=== PATIENT | male | born 1945 | race Caucasian/White ===

== ENCOUNTER 2020-04-08 13:53 | Inpatient (IN) | payer MEDICARE ==
[~2020-04-08] VITALS: Ht 172.7 cm; Wt 116.7 kg
[~2020-04-08 13:53] MED LIST: ACYCLOVIR800 MG PO; ASPIRIN81 MG PO; COQ10100 MG PO; FENOFIBRATE54 MG PO; FISH OIL1000 MG PO; FLUZONE SPLT1 M1 IM; GABAPENTIN400 MG PO; HYDROCO/APAP1 T10 PO; HYZAAR1 TA2 PO; LIDODERM5 % EX; MELOXICAM15 MG PO; OS-CAL 500500 M1 OR; PHENERGAN12.5 MG/TA PO; ULTRAM50 M1 PO
--- NOTE | 2020-04-08 14:05 | NUR ---
ASSISTED PT OUT OF PRIVATE AUTO, PT TACHYNEIC, PALE, WITH CYANOTIC NAILBEDS, PT IMMEDIATELY BROUGHT BACK TO ROOM 8, PLACED ON PEA VINER MECHANIC, SHOWS SINUS TACH, RESP 44, 02 84% RA. DR CHILDS, RT AT BEDSIDE.
--- NOTE | 2020-04-08 14:10 | NUR ---
PT ANXIOUS, RESP LABORED AT A RATE 36-44, ABG OBTAINED, NEB TX GIVEN. PT PLACED ON 02 AT 6L VIA NC. DR CHILDS REMAINS AT BEDSIDE. MONITOR SHOWS SINUS TACH. SKIN WARM AND DRY AT THIS TIME.
[2020-04-08 14:30] LABS: HEMATOCRIT 46.8 % (39.0-50.0); HEMOGLOBIN 14.9 g/dl (14.0-18.0); IMMATURE GRANULOCYTES 0.5 % (0.0-5.0); MEAN CELL VOLUME 91.9 fL CALC (80.0-100.0); MEAN CORPUSCULAR HGB 29.3 pG CALC (26.0-32.0); MEAN CORPUSCULAR HGB CONC 31.8 g/dL CAL (32.0-36.0); NEUT# 20.69 thou/uL (1.82-7.42); RED BLOOD COUNT 5.09 mill/uL (4.70-6.10); RED CELL DISTRI WIDTH 15.4 % (11.5-15.5)
[2020-04-08 14:46] LABS: CREATININE 1.5 mg/dL (0.7-1.3); POTASSIUM 4.6 mmol/l (3.5-5.1)
--- NOTE | 2020-04-08 15:00 | NUR ---
PT REPOSITIONED IN BED FOR COMFORT, SKIN P/W/D. PT STATES " BREATHING BETTER" VITAL SIGNS STABLE AT THIS TIME.
[2020-04-08 15:22] LABS: ALBUMIN 4.3 g/dL (3.2-5.0); BILIRUBIN, TOTAL 1.8 mg/dL (0.0-1.4); TOTAL PROTEIN 7.6 g/dL (6.3-8.2)
--- NOTE | 2020-04-08 16:00 | NUR ---
SPOUSE AT BEDSIDE WITH PT. THEY REPORTS SIMILIAR EPISODES 2 WEEKS AGO. PT SEEN AT DR NORRIS'S OFFICE TODAY AND WAS SWABBED FOR COVID.
[2020-04-08 16:16] LABS: URINE BILIRUBIN - DIPSTICK NEGATIVE (NEGATIVE); URINE BLOOD DIPSTICK TRACE-INTACT (NEGATIVE); URINE COLOR YELLOW; URINE GLUCOSE - DIPSTICK NEGATIVE (NEGATIVE); URINE KETONE TRACE mg/dL (NEGATIVE); URINE LEUK ESTERASE NEGATIVE (NEGATIVE); URINE NITRITE - DIPSTICK NEGATIVE (Negative); URINE PH 5.5 (4.5-8.0); URINE PROTEIN - DIPSTICK >=300 mg/dL (NEG-TRACE); URINE SPECIFIC GRAVITY 1.025; URINE UROBILINOGEN - DIPSTICK 0.2 E.U./dL (0.2)
[2020-04-08 16:33] LABS: URINE SQUAMOUS EPITHELIAL CELL FEW EPI/hpf (0-FEW)
--- NOTE | 2020-04-08 17:00 | NUR ---
PT TALKING WITH SPOUSE, REPORTS FEELING BETTER, VSS. WILL CONTINUE TO MONITOR
--- NOTE | 2020-04-08 18:01 | NUR ---
DR CHILDS AT BEDSIDE TO DISCUSS CLINICAL FINDINGS AND PLANS FOR ADMISSION. PT VERBALIZED UNDERSTANDING.
--- NOTE | 2020-04-08 18:16 | NUR ---
REPORT TO ANGÉLICA BRYANT
--- NOTE | 2020-04-08 18:55 | NUR ---
REPORT TO ELAINE BRYANT.
--- NOTE | 2020-04-08 20:00 | NUR ---
TRANSPORTED PT TO ICU 2 WITH BRIM STITCHER, 02 VIA NC AND IV SITE INTACT. PT DID NOT HAVE ANY SOB WHILE TRANSPORTING OR WALKING FROM STRETCHER TO BED. PT AND WERE BOTH SUPRISED TO FIND OUT PT GOING TO ICU. INFORMED THEM SO WE CAN KEEP A CLOSER EYE ON HIM. BOTH ACCEPTED REASON.
[2020-04-08 20:05] VITALS: BP 116/70
--- NOTE | 2020-04-08 20:05 | NUR ---
REPORT GIVEN BY JOSH IN THE ER. PATIENT BROUGHT TO THE UNIT BY JOSÉ ANTONIO BRYANT VIA [facility]. ARRIVED AT 2004. ALERT AND ORIENT. RESP EVEN AND UNLAOBRED, 4L VIA NC, LUNGS CLEAR. BOWEL SOUNDS ACTIVE. PULSES STRONG. TRACE EDEMA PRESENT BILATERAL FEET, PATIENT STATES THAT IS NORMAL. ORIENTED TO ROOM, CALL LIGHT, AND BED. PLAN OF CARE DISCUSSED. PATIENT INFORMED TO CALL WITH ANY QUESTIONS OR CONCERNS.
--- NOTE | 2020-04-08 21:07 | NUR ---
CALLED, CODE WAS VERIFIED. PATIENT'S WAS UPDATED ON HIS CURRENT CONDITION.
--- NOTE | 2020-04-08 23:30 | NUR ---
PATIENT IN BED RESTING WITH EYES CLOSED. RESP EVEN AND UNLABORED. NO S/S OF DISTRESS NOTED.
[2020-04-09] VITALS (12 sets, daily range): BP systolic 117–169; BP diastolic 57–84
--- NOTE | 2020-04-09 01:05 | NUR ---
INFORMED OF INCREASED TROP. PATIENT HAS NO C/O SOB OR CP. SR ON TELE. NO NEW ORDERS GIVEN AT THIS TIME.
--- NOTE | 2020-04-09 04:43 | NUR ---
NEW BAG OF NS STARTED. PATIENT INFORMED FOR ELEVATED TROP. RESP EVEN AND UNLABORED. NO S/S OF DISTRESS NOTED.
[2020-04-09 06:40] LABS: BUN 33 mg/dL (8-23); BUN/CREATININE RATIO 28 (12-20 (CALC)); CHLORIDE 106 mmol/l (95-108); CREATININE 1.2 mg/dL (0.7-1.3); GFR 59 ML/MIN (>=60 (CALC)); GFR FOR AFR.AMER. > 60 ML/MIN (>=60 (CALC)); POTASSIUM 4.7 mmol/l (3.5-5.1); SODIUM 135 mmol/l (137-146)
[2020-04-09 06:44] LABS: ANION GAP 11 (6-22 (CALC)); CARBON DIOXIDE 23 mmol/l (22-30)
--- NOTE | 2020-04-09 07:20 | NUR ---
pt awake in bed; no apparent distress noted; pt offers no complaints; assessment completed at this time; pt alert and oriented; denies pain; no n/v noted; pt denies sob/ chest pain; resp even and unlabored; lungs clear; skin color wnl; o2 per nc at 2L; radiation monitor dry cough noted; hr reg; strong; pulses; trace pedal edema; sr on monitor; abd soft with bs present; no bm noted per music writer; pt voiding clear yellow urine; urinal at bedside; #20 flushed and patent to rac/ #20 patent to lac with ivf infusing without complication; no redness or edema noted at site; plan of care/ am meds explained; call light within reach; will continue to monitor
--- NOTE | 2020-04-09 08:00 | NUR ---
spouse Vishal Cortez called this automobile and property underwriter; update provided; med list faxed to pharmacy; will continue to monitor
[2020-04-09] MEDS ORDERED: METAMUCIL0.36 GM PO (08:09)
[2020-04-09] MEDS ORDERED: OMEGA 31000 MG PO (08:09)
[2020-04-09] MEDS ORDERED: D32000 UNIT PO (08:09)
[2020-04-09] MEDS ORDERED: ALLOPURINOL100 MG PO (08:09)
[2020-04-09] MEDS ORDERED: BENICAR HCT1 TA1 PO (08:10)
[2020-04-09] MEDS ORDERED: ROSUVASTATIN CA10 MG PO (08:10)
[2020-04-09] MEDS ORDERED: SILDENAFIL50 MG PO (08:10)
--- NOTE | 2020-04-09 09:09 | NUR ---
pt awake in bed; am meds explained; pt denies taking losarten; states he in on a new medication (Olmesartan); losarten held at this time and to be clarified with MD; will continue to monitor
--- NOTE | 2020-04-09 09:28 | NUR ---
Dr Machuca present at bedside to assess pt and discuss plan of care
[2020-04-09 09:47] LABS: HEMATOCRIT 39.7 % (39.0-50.0); HEMOGLOBIN 12.9 g/dl (14.0-18.0); IMMATURE GRANULOCYTES 0.4 % (0.0-5.0); MEAN CELL VOLUME 91.7 fL CALC (80.0-100.0); MEAN CORPUSCULAR HGB 29.8 pG CALC (26.0-32.0); MEAN CORPUSCULAR HGB CONC 32.5 g/dL CAL (32.0-36.0); NEUT# 13.68 thou/uL (1.82-7.42); RED BLOOD COUNT 4.33 mill/uL (4.70-6.10); RED CELL DISTRI WIDTH 15.8 % (11.5-15.5)
--- NOTE | 2020-04-09 10:01 | NUR ---
plan of care/ meds discussed with Dr Machuca; pt informed of plan of care; christian administered; sr on monitor; iv intact and patent; pt offers no complaints; call light within reach; will continue to monitor
--- NOTE | 2020-04-09 12:01 | NUR ---
awake sitting on side of bed eating lunch; no apparent distress noted; resp even and unlabored; ra; o2 sat 97%; iv intact and patent; no redness or edema noted at site; sr on monitor; call light within reach; will continue to monitor
--- NOTE | 2020-04-09 14:15 | NUR ---
pt awake in bed; no apparent distress noted; sr on monitor; iv intact and patent; call light within reach; will continue to monitor
--- NOTE | 2020-04-09 16:07 | NUR ---
awake in bed; no apparent distress noted; pt offers no complaints; iv intact and patent; sr on monitor; deny needs; call light within reach; will continue to monitor
--- NOTE | 2020-04-09 17:50 | NUR ---
resting in bed with eyes closed; no apparent distress noted; easily aroused; offers no complaints; sr on monitor; iv intact and patent; call light within reach
--- NOTE | 2020-04-09 19:45 | NUR ---
PATIENT SITTING UP IN BED IN HIGH FOWLERS POSITION. RESP NON-LABORED. LUNGS CLEAR. RA O2 SAT 98% BREATH SOUNDS CLEAR THROUGHOUT LUNG LEYVA. SALINE LOCK IN RAC AND IV IN LAC WITH NS AT 125 ML/HR, BOTH SITES BENIGN. DISCUSSSED PLAN OF CARE. DENIES NEEDS AT THIS TIME. CALL STANTON IN REACH.
--- NOTE | 2020-04-09 22:00 | NUR ---
RESTING IN BED WATCHING TV. PLEASANT AND COOPERATIVE. TAKING PO FLUIDS WELL.
[2020-04-10] VITALS (7 sets, daily range): BP systolic 125–197; BP diastolic 58–97
--- NOTE | 2020-04-10 | NUR ---
RESTING WITH EYES CLOSED. RESP NON-LABORED. RA O2 SAT 94% SR ON MONITOR. IV INFUSING WITHOUT INCIDENT.
--- NOTE | 2020-04-10 02:00 | NUR ---
SLEEPING SOUNDLY. RESP NON-LABORED. SR ON MONITOR. VSS.
--- NOTE | 2020-04-10 04:10 | NUR ---
HAS SLEPT SOUNDLY. VSS. SR ON MONITOR. NO CHANGES TO REPORT.
[2020-04-10 05:14] LABS: HEMOGLOBIN 12.7 g/dl (14.0-18.0); IMMATURE GRANULOCYTES 0.6 % (0.0-5.0); MEAN CELL VOLUME 92.6 fL CALC (80.0-100.0); MEAN CORPUSCULAR HGB 29.4 pG CALC (26.0-32.0); MEAN CORPUSCULAR HGB CONC 31.8 g/dL CAL (32.0-36.0); NEUT# 10.83 thou/uL (1.82-7.42); RED BLOOD COUNT 4.32 mill/uL (4.70-6.10)
[2020-04-10 05:50] LABS: ANION GAP 9 (6-22 (CALC)); BUN 32 mg/dL (8-23); BUN/CREATININE RATIO 31 (12-20 (CALC)); CARBON DIOXIDE 21 mmol/l (22-30); CHLORIDE 109 mmol/l (95-108); GFR > 60 ML/MIN (>=60 (CALC)); GFR FOR AFR.AMER. > 60 ML/MIN (>=60 (CALC)); SODIUM 134 mmol/l (137-146)
[2020-04-10 05:51] LABS: POTASSIUM 5.4 mmol/l (3.5-5.1)
--- NOTE | 2020-04-10 06:11 | NUR ---
NO CHANGES TO REPORT. VSS.
--- NOTE | 2020-04-10 07:35 | NUR ---
pt resting in bed with eyes closed; no apparent distress noted; easily arousable; assessment completed at this time; pt alert and oriented; denies pain; no n/v noted; resp even and unlabored; lungs clear; skin color wnl; ra; hr reg; strong pulses; pedal edema noted; sr on monitor; abd soft/ distended with bs present; no bm noted per greeting card writer; pt admits to voiding without complication; no urine to inspect at this time; urinal present at bedside; #20 to rac saline locked; #20 to lac with ivf infusing; both sites flushed and patent; no redness or edema noted; plan of care/ am meds explained; call light within reach; will continue to monitor
--- NOTE | 2020-04-10 08:03 | NUR ---
awake sitting on side of bed eating breakfast; no apparent distress noted; sr on monitor; call light within reach; will continue to monitor
--- NOTE | 2020-04-10 09:36 | NUR ---
awake in bed; am meds explained; bp elevated; home meds reviewed with pt; sr on monitor; call light within reach
[2020-04-10] MEDS ORDERED: LEVAQUIN750 MG PO (09:54)
--- NOTE | 2020-04-10 10:00 | NUR ---
Dr Machuca present at bedside to assess pt and discuss plan of care/ discharge; iv intact; pt offers no complaints; call light within reach; will continue to monitor
--- NOTE | 2020-04-10 11:58 | NUR ---
awake sitting on side of bed eating lunch; no apparent distress noted; pt offers no complaints; iv's intact and saline locked; sr on monitor; pt deny needs; call light within reach; will continue to monitor
--- NOTE | 2020-04-10 13:35 | NUR ---
Dr Machuca notified of elevated bp of 177/97; orders reeived and on chart; continue with discharge
--- NOTE | 2020-04-10 14:05 | NUR ---
awake in bed; offers no complaints; bp remains elevated; pt insistant on discharge; abt infusing without complication; sr/pac on monitor; call light within reach; will continue to monitor
--- NOTE | 2020-04-10 15:00 | NUR ---
discharge instructions reviewed with pt; pt admits to understanding; pt has been informed to take bp meds when he arrives home as per Dr Machuca; awaiting completion of abt; will continue to monitor
--- NOTE | 2020-04-10 15:34 | NUR ---
Discharge instructions given. Patient verbalizes understanding of same. Discharged in stable condition via Wheelchair to Home with spouse. All belongings sent with pt.
--- NOTE | 2020-04-11 21:01 | NUR ---
Notified patient of negative Covid results from 04/08/20.
== END 2020-04-10 15:34 | disposition home or self-care (01) | DRG 194 ==
LOC: ED 13:53 → ED-I 17:16 → ED 17:30 → ED-I 17:31 → MS2 18:03 → ICU 18:58
PROVIDERS: Emergency Medicine; ADMIT Internal Medicine; ATTEND Internal Medicine
DX: J18.9 Pneumonia, unspecified organism (principal); N17.9 Acute kidney failure, unspecified; I24.8 Other forms of acute ischemic heart disease; I10 Essential (primary) hypertension; E78.5 Hyperlipidemia, unspecified; Z20.828 Contact with and (suspected) exposure to other viral communicable diseases

== ENCOUNTER 2020-08-29 09:17 | Emergency (ER) | payer MEDICARE ==
[~2020-08-29] VITALS: Ht 172.7 cm; Wt 110.9 kg
[~2020-08-29 09:17] MED LIST changes: +ALLOPURINOL100 MG PO; +BENICAR HCT1 TA1 PO; +D32000 UNIT PO; +LEVAQUIN750 MG PO; +METAMUCIL0.36 GM PO; +OMEGA 31000 MG PO; +ROSUVASTATIN CA10 MG PO; +SILDENAFIL50 MG PO
[2020-08-29 09:43] LABS: HEMATOCRIT 42.8 % (39.0-50.0); HEMOGLOBIN 13.3 g/dl (14.0-18.0); IMMATURE GRANULOCYTES 0.3 % (0.0-5.0); MEAN CORPUSCULAR HGB 27.4 pG CALC (26.0-32.0); MEAN CORPUSCULAR HGB CONC 31.1 g/dL CAL (32.0-36.0); NEUT# 8.19 thou/uL (1.82-7.42); RED BLOOD COUNT 4.86 mill/uL (4.70-6.10); RED CELL DISTRI WIDTH 14.7 % (11.5-15.5)
[2020-08-29 10:00] LABS: ALBUMIN 3.6 g/dL (3.2-5.0); CREATININE 1.4 mg/dL (0.7-1.3); POTASSIUM 4.1 mmol/l (3.5-5.1); TOTAL PROTEIN 6.8 g/dL (6.3-8.2)
[2020-08-29 10:03] LABS: BILIRUBIN, TOTAL 0.4 mg/dL (0.0-1.4)
[2020-08-29 10:13] LABS: MEAN CELL VOLUME 88.1 fL CALC (80.0-100.0)
[2020-08-29] MEDS ORDERED: MUCINEX1200 MG PO (11:00)
[2020-08-29] MEDS ORDERED: ONDANSETRON4 MG PO (11:01)
[2020-08-29] MEDS ORDERED: OMEPRAZOLE20 MG PO (11:02)
[2020-08-29] MEDS ORDERED: NORVASC5 M1 PO (11:04)
[2020-08-29] MEDS ORDERED: AMLOD/BENAZP1 CA3 PO (11:05)
[2020-08-29] MEDS ORDERED: CARVEDILOL12.5 MG PO (11:05)
[2020-08-29] MEDS ORDERED: LASIX 40 MG TAB40 MG PO (11:23)
[2020-08-29 11:41] VITALS: BP 132/72
== END 2020-08-29 11:41 | disposition home or self-care (01) ==
LOC: ED 09:17
PROVIDERS: Family Medicine
DX: I11.0 Hypertensive heart disease with heart failure (principal); I50.9 Heart failure, unspecified; S22.42XA Multiple fractures of ribs, left side, initial encounter for closed fracture; M54.2 Cervicalgia; W19.XXXA Unspecified fall, initial encounter; Z95.1 Presence of aortocoronary bypass graft; Z20.828 Contact with and (suspected) exposure to other viral communicable diseases
CPT/HCPCS: Q9967

== ENCOUNTER 2020-10-18 15:24 | Emergency (ER) | payer MEDICARE ==
[~2020-10-18] VITALS: Ht 172.7 cm; Wt 110.0 kg
[~2020-10-18 15:24] MED LIST changes: +AMLOD/BENAZP1 CA3 PO; +CARVEDILOL12.5 MG PO; +LASIX 40 MG TAB40 MG PO; +MUCINEX1200 MG PO; +NORVASC5 M1 PO; +OMEPRAZOLE20 MG PO; +ONDANSETRON4 MG PO
[2020-10-18 16:46] LABS: HEMATOCRIT 42.7 % (39.0-50.0); HEMOGLOBIN 13.4 g/dl (14.0-18.0); IMMATURE GRANULOCYTES 0.6 % (0.0-5.0); MEAN CELL VOLUME 84.9 fL CALC (80.0-100.0); MEAN CORPUSCULAR HGB 26.6 pG CALC (26.0-32.0); MEAN CORPUSCULAR HGB CONC 31.4 g/dL CAL (32.0-36.0); NEUT# 3.8 thou/uL (1.82-7.42); RED BLOOD COUNT 5.03 mill/uL (4.70-6.10)
[2020-10-18 17:02] LABS: ALBUMIN 3.4 g/dL (3.2-5.0); BILIRUBIN, TOTAL 0.6 mg/dL (0.0-1.4); CREATININE 1.7 mg/dL (0.7-1.3); POTASSIUM 4.9 mmol/l (3.5-5.1); TOTAL PROTEIN 6.6 g/dL (6.3-8.2)
[2020-10-18 17:47] VITALS: BP 133/63
[2020-10-18] MEDS ORDERED: CHERATUSSIN PO (18:01)
== END 2020-10-18 18:02 | disposition home or self-care (01) ==
LOC: ED 15:24
PROVIDERS: Family Medicine
DX: R55 Syncope and collapse (principal); I10 Essential (primary) hypertension; M10.9 Gout, unspecified

== ENCOUNTER 2021-04-14 21:49 | Emergency (ER) | payer MEDICARE ==
[~2021-04-14] VITALS: Ht 172.7 cm; Wt 106.0 kg
[~2021-04-14 21:49] MED LIST changes: +CHERATUSSIN PO
[2021-04-14] MEDS ORDERED: XARELTO15 MG PO (22:39)
[2021-04-14 22:59] VITALS: BP 133/72
== END 2021-04-14 22:57 | disposition home or self-care (01) ==
LOC: ED 21:49
DX: L76.22 Postprocedural hemorrhage of skin and subcutaneous tissue following other procedure (principal); I10 Essential (primary) hypertension; E78.00 Pure hypercholesterolemia, unspecified; M10.9 Gout, unspecified; Y83.1 Surgical operation with implant of artificial internal device as the cause of abnormal reaction of the patient, or of later complication, without mention of misadventure at the time of the procedure

== ENCOUNTER 2021-08-12 21:06 | Emergency (ER) | payer MEDICARE ==
[~2021-08-12] VITALS: Ht 172.7 cm; Wt 100.0 kg
[~2021-08-12 21:06] MED LIST changes: +XARELTO15 MG PO
[2021-08-12 22:57] LABS: HEMATOCRIT 43.4 % (39.0-50.0); HEMOGLOBIN 13.7 g/dl (14.0-18.0); IMMATURE GRANULOCYTES 0.1 % (0.0-5.0); MEAN CORPUSCULAR HGB 27.8 pG CALC (26.0-32.0); MEAN CORPUSCULAR HGB CONC 31.6 g/dL CAL (32.0-36.0); NEUT# 8.48 thou/uL (1.82-7.42); RED BLOOD COUNT 4.93 mill/uL (4.70-6.10); RED CELL DISTRI WIDTH 16.7 % (11.5-15.5)
[2021-08-12 23:08] LABS: ALBUMIN 3.6 g/dL (3.2-5.0); ANION GAP 11 (6-22 (CALC)); BUN 23 mg/dL (8-23); BUN/CREATININE RATIO 18 (12-20 (CALC)); CARBON DIOXIDE 25 mmol/l (22-30); CHLORIDE 106 mmol/l (95-108); CREATININE 1.3 mg/dL (0.7-1.3); GFR 54 ML/MIN (>=60 (CALC)); GFR FOR AFR.AMER. > 60 ML/MIN (>=60 (CALC)); SGOT/AST 23 u/l (19-48); SODIUM 139 mmol/l (137-146); TOTAL PROTEIN 6.6 g/dL (6.3-8.2)
[2021-08-12 23:09] LABS: ALKALINE PHOSPHATASE 149 u/l (38-126); BILIRUBIN, TOTAL 1.1 mg/dL (0.0-1.4)
[2021-08-12 23:19] LABS: D-DIMER 1.5 mg/L (0.19-0.60); MYOGLOBIN 53 ng/mL (0 - 121)
[2021-08-12 23:22] LABS: INTERNATIONAL NORMALIZED RATIO 1.1 RATIO (0.7-1.3); PROTHROMBIN TIME 11.9 SECONDS (9.0-12.5)
[2021-08-13] MEDS ORDERED: LEVAQUIN750 M1 PO (01:05)
[2021-08-13 01:23] VITALS: BP 135/68
[2021-08-13 03:15] LABS: URINE BILIRUBIN - DIPSTICK NEGATIVE (NEGATIVE); URINE BLOOD DIPSTICK TRACE-INTACT (NEGATIVE); URINE COLOR YELLOW; URINE GLUCOSE - DIPSTICK NEGATIVE (NEGATIVE); URINE KETONE NEGATIVE (NEGATIVE); URINE LEUK ESTERASE NEGATIVE (NEGATIVE); URINE PROTEIN - DIPSTICK 100 mg/dL (NEG-TRACE); URINE UROBILINOGEN - DIPSTICK 0.2 E.U./dL (0.2)
[2021-08-13 03:18] LABS: URINE NITRITE - DIPSTICK NEGATIVE (Negative)
[2021-08-13 03:35] LABS: URINE RBC 0-2 RBC/hpf (0-5); URINE SQUAMOUS EPITHELIAL CELL FEW EPI/hpf (0-FEW)
== END 2021-08-13 01:30 | disposition home or self-care (01) ==
LOC: ED 21:06
PROVIDERS: Family Medicine
DX: J18.9 Pneumonia, unspecified organism (principal); I10 Essential (primary) hypertension; E78.00 Pure hypercholesterolemia, unspecified; M10.9 Gout, unspecified; Z95.0 Presence of cardiac pacemaker; Z20.822 Contact with and (suspected) exposure to COVID-19
CPT/HCPCS: Q9967

== ENCOUNTER 2023-11-18 15:54 | Inpatient (IN) | payer MEDICARE ==
[~2023-11-18] VITALS: Ht 172.7 cm; Wt 107.0 kg
[~2023-11-18 15:54] MED LIST changes: +LEVAQUIN750 M1 PO
[2023-11-18 17:08] VITALS: BP 146/85
[2023-11-18] MEDS ORDERED: COZAAR25 MG PO (17:10)
[2023-11-18] MEDS ORDERED: ALLOPURINOL200 MG (17:11)
[2023-11-18] MEDS ORDERED: FUROSEMIDE20 MG PO (17:11)
[2023-11-18 17:12] LABS: BASO% 0.2 % (0-3); EOS% 0.6 % (0-8); HEMATOCRIT 47.8 % (39.0-50.0); HEMOGLOBIN 15.7 g/dl (14.0-18.0); IMMATURE GRANULOCYTES 0.2 % (0.0-5.0); LYMPH% 4.8 % (15-41); MEAN CORPUSCULAR HGB 31.8 pG CALC (26.0-32.0); MEAN CORPUSCULAR HGB CONC 32.8 g/dL CAL (32.0-36.0); NEUT# 7.6 thou/uL (1.82-7.42); NEUT% 81.2 % (42-76); RED BLOOD COUNT 4.93 mill/uL (4.70-6.10); RED CELL DISTRI WIDTH 15.9 % (11.5-15.5)
[2023-11-18] MEDS ORDERED: POT CHLORIDE10 ME5 PO (17:13)
[2023-11-18] MEDS ORDERED: ALPRAZOLAM0.5 M2 PO (17:14)
[2023-11-18 17:23] LABS: CREATININE 1.5 mg/dL (0.7-1.3); POTASSIUM 4.4 mmol/l (3.5-5.1)
[2023-11-18 17:55] VITALS: BP 121/83
[2023-11-18 18:41] LABS: URINE BLOOD DIPSTICK Trace-intact (NEGATIVE); URINE GLUCOSE - DIPSTICK Negative (NEGATIVE); URINE KETONE Negative (NEGATIVE); URINE LEUK ESTERASE Negative (NEGATIVE); URINE NITRITE - DIPSTICK Negative (Negative); URINE PH 5.5 (4.5-8.0); URINE PROTEIN - DIPSTICK >=300 mg/dL (NEG-TRACE)
[2023-11-18 18:48] LABS: URINE COLOR Yellow; URINE RBC 0-2 RBC/hpf (0-5); URINE WBC 0-2 WBC/hpf (0-5)
[2023-11-18 19:41] VITALS: BP 119/46
[2023-11-18 20:26] VITALS: BP 121/71
[2023-11-18 23:25] VITALS: BP 90/47
[2023-11-19] VITALS (192 sets, daily range): BP systolic 63–168; BP diastolic 37–107
[2023-11-19 07:00] LABS: ALBUMIN 3.5 g/dL (3.2-5.0); CREATININE 1.7 mg/dL (0.7-1.3); TOTAL PROTEIN 6.2 g/dL (6.3-8.2)
[2023-11-19 07:28] LABS: BILIRUBIN, TOTAL 1.9 mg/dL (0.2-1.3); POTASSIUM 5.4 mmol/l (3.5-5.1)
[2023-11-19 09:17] LABS: ALBUMIN 3.4 g/dL (3.2-5.0); BILIRUBIN, TOTAL 1.8 mg/dL (0.2-1.3); CREATININE 1.9 mg/dL (0.7-1.3); TOTAL PROTEIN 5.9 g/dL (6.3-8.2)
[2023-11-19 09:18] LABS: POTASSIUM 5.6 mmol/l (3.5-5.1)
[2023-11-19 15:21] LABS: CREATININE 1.8 mg/dL (0.7-1.3)
[2023-11-19 15:22] LABS: POTASSIUM 4.3 mmol/l (3.5-5.1)
== END 2023-11-19 18:40 | DRG 871 ==
LOC: MS2 15:54 → ICU 11-19 02:25
PROVIDERS: Internal Medicine; ADMIT Student in an Organized Health Care Education/Training Program; ATTEND Student in an Organized Health Care Education/Training Program
PROC: 5A09357 Assistance with Respiratory Ventilation, Less than 24 Consecutive Hours, Continuous Positive Airway Pressure (ICD-10-PCS; principal; 2023-11-19)
PROC: 06HY33Z Insertion of Infusion Device into Lower Vein, Percutaneous Approach (ICD-10-PCS; 2023-11-19)
PROC: 0BH17EZ Insertion of Endotracheal Airway into Trachea, Via Natural or Artificial Opening (ICD-10-PCS; 2023-11-19)
PROC: 5A1935Z Respiratory Ventilation, Less than 24 Consecutive Hours (ICD-10-PCS; 2023-11-19)
PROC: 3E043XZ Introduction of Vasopressor into Central Vein, Percutaneous Approach (ICD-10-PCS; 2023-11-19)
DX: A41.9 Sepsis, unspecified organism (principal); J18.9 Pneumonia, unspecified organism; J96.01 Acute respiratory failure with hypoxia; R57.8 Other shock; N17.9 Acute kidney failure, unspecified; I47.20 Ventricular tachycardia, unspecified; I13.0 Hypertensive heart and chronic kidney disease with heart failure and stage 1 through stage 4 chronic kidney disease, or unspecified chronic kidney disease; R65.20 Severe sepsis without septic shock; I95.9 Hypotension, unspecified; E86.9 Volume depletion, unspecified; I49.3 Ventricular premature depolarization; E87.5 Hyperkalemia; I25.10 Atherosclerotic heart disease of native coronary artery without angina pectoris; N18.31 Chronic kidney disease, stage 3a; I50.9 Heart failure, unspecified; E78.5 Hyperlipidemia, unspecified; I48.91 Unspecified atrial fibrillation; Z95.1 Presence of aortocoronary bypass graft; Z95.5 Presence of coronary angioplasty implant and graft; Z95.818 Presence of other cardiac implants and grafts
CPT/HCPCS: J0282; J3370; S0164